=== PATIENT | female | born 1955 | race Native Hawaiian/Other Pacific Islander ===

== ENCOUNTER 2017-05-30 10:03 | Outpatient (CLI) | payer OTHER ==
[~2017-05-30 10:03] MED LIST: CLARITIN10 MG PO
== END 2017-05-30 11:30 | disposition home or self-care (01) ==
LOC: MAMMO 10:03
DX: Z12.31 Encounter for screening mammogram for malignant neoplasm of breast (principal); Z13.820 Encounter for screening for osteoporosis; M81.8 Other osteoporosis without current pathological fracture
CPT/HCPCS: G0202-TC

== ENCOUNTER 2018-05-15 14:10 | Outpatient (CLI) | payer OTHER ==
[2018-05-15 14:37] LABS: PLATELET COUNT 306 K/uL (152-353)
[2018-05-15 15:05] LABS: POTASSIUM 4.2 mmol/L (3.6-5.2)
== END 2018-05-15 23:07 | disposition home or self-care (01) ==
LOC: LAB 14:10
PROVIDERS: Nurse Practitioner Family
DX: E78.4 Other hyperlipidemia (principal); R53.83 Other fatigue; E55.9 Vitamin D deficiency, unspecified; Z79.899 Other long term (current) drug therapy; Z51.81 Encounter for therapeutic drug level monitoring
CPT/HCPCS: 80053; 80061; 82306; 83036; 84436; 84443; 85027

== ENCOUNTER 2018-08-15 13:32 | Outpatient (CLI) | payer OTHER | END 2018-08-15 22:46 | disposition home or self-care (01) | LOC: MAMMO 13:32 | DX: Z12.31 Encounter for screening mammogram for malignant neoplasm of breast (principal) ==

== ENCOUNTER 2019-04-17 11:02 | Outpatient (CLI) | payer OTHER | END 2019-04-17 19:04 | disposition home or self-care (01) | LOC: US 11:02 | DX: M79.604 Pain in right leg (principal) ==

== ENCOUNTER 2019-04-18 09:59 | Outpatient (CLI) | payer OTHER | END 2019-04-18 23:35 | disposition home or self-care (01) | LOC: US 09:59 | DX: M79.604 Pain in right leg (principal) ==

== ENCOUNTER 2019-05-30 09:46 | Outpatient (CLI) | payer OTHER | END 2019-05-30 22:16 | disposition home or self-care (01) | LOC: CT 09:46 | DX: M79.661 Pain in right lower leg (principal) | CPT/HCPCS: 36415; 82565; 84520; Q9963 ==

== ENCOUNTER 2019-09-01 15:38 | Emergency (ER) | payer OTHER ==
[~2019-09-01] VITALS: Ht 170.2 cm; Wt 54.4 kg
[2019-09-01 16:19] LABS: PLATELET COUNT 308 K/uL (152-353)
[2019-09-01 16:23] LABS: POTASSIUM 3.6 mmol/L (3.6-5.2); SODIUM 139 mmol/L (136-145)
[2019-09-01 17:03] VITALS: BP 176/84; TEMP 98.8
== END 2019-09-01 17:03 | disposition home or self-care (01) ==
LOC: ED 15:38
PROVIDERS: Emergency Medicine
DX: G45.9 Transient cerebral ischemic attack, unspecified (principal)
CPT/HCPCS: 80053; 82550; 82553; 84484; 85027; 85610; 85730; 93005; 99283

== ENCOUNTER 2019-10-17 13:19 | Outpatient (CLI) | payer OTHER | END 2019-10-17 19:36 | disposition home or self-care (01) | LOC: MRI 13:19 | DX: G45.9 Transient cerebral ischemic attack, unspecified (principal) | CPT/HCPCS: 36415; 83090; 85651; 86038 ==

== ENCOUNTER 2022-03-31 17:46 | Outpatient (CLI) | payer OTHER ==
[2022-03-31 18:56] LABS: PLATELET COUNT 275 K/uL (152-353)
[2022-03-31 19:09] LABS: POTASSIUM 3.9 mmol/L (3.6-5.2)
== END 2022-03-31 19:16 | disposition home or self-care (01) ==
LOC: LAB 17:46
PROVIDERS: ATTEND Nurse Practitioner Family
DX: E78.49 Other hyperlipidemia (principal); I10 Essential (primary) hypertension; R53.83 Other fatigue; E55.9 Vitamin D deficiency, unspecified; M25.50 Pain in unspecified joint; Z79.899 Other long term (current) drug therapy; F17.200 Nicotine dependence, unspecified, uncomplicated; M10.9 Gout, unspecified; Z86.73 Personal history of transient ischemic attack (TIA), and cerebral infarction without residual deficits; E53.8 Deficiency of other specified B group vitamins; Z09 Encounter for follow-up examination after completed treatment for conditions other than malignant neoplasm
CPT/HCPCS: 80053; 80061; 82306; 82607; 83036; 84439; 84443; 85027